=== PATIENT | female | born 1995 ===

== ENCOUNTER 2022-11-14 09:46 | Outpatient (OUT) | payer BC, SELFPAY ==
[2022-11-14 10:12] LABS: Basophils Absolute Auto 0.1 10^3/uL (0.0-0.1); Basophils Percent Auto 1.1 % (0.2-2.0); Eosinophils Absolute Auto 0.4 10^3/uL (0.0-0.7); Eosinophils Percent Auto 6.3 % (0.9-7.0); Hematocrit 40.3 % (36.0-48.0); Immature Granulocytes Abs Auto 0.01 10^3/uL (0.00-0.03); Immature Granulocytes Pct Auto 0.2 % (0.0-0.5); Lymphocytes Absolute Auto 1.5 10^3/uL (1.2-3.8); Lymphocytes Percent Auto 27.3 % (20.5-60.0); Mean Corpuscular HGB Conc 32.3 g/dL (29.9-35.2); Mean Corpuscular Hemoglobin 31.6 pg (26.7-34.0); Mean Corpuscular Volume 98.1 fL (81.0-99.0); Mean Platelet Volume 9.3 fL (9.5-13.5); Monocytes Absolute Auto 0.5 10^3/uL (0.3-0.8); Monocytes Percent Auto 8.8 % (1.7-12.0); Neutrophils Absolute Auto 3.1 10^3/uL (1.4-6.5); Neutrophils Percent Auto 56.3 % (43.0-75.0); Platelet Count 286 10^3/uL (150-450); Red Blood Count 4.11 10^6/uL (4.20-5.40); Red Cell Distribution Width 12.8 % (11.0-15.0); White Blood Count 5.6 10^3/uL (4.0-11.0)
[2022-11-14 10:44] LABS: Estimated Average Glucose 103 mg/dL; Glycohemoglobin A1C 5.2 % (4.5-6.2)
[2022-11-14 11:17] LABS: Alanine Aminotransferase 21 U/L (14-59); Albumin Globulin Ratio 0.9; Albumin Level 3.8 g/dL (3.4-5.0); Alkaline Phosphatase 62 U/L (46-116); Aspartate Amino Transferase 13 U/L (15-37); BUN Creatinine Ratio 19.2; Bilirubin Total 0.3 mg/dL (0.2-1.0); Calcium 8.9 mg/dL (8.5-10.1); Chloride 104 mmol/L (98-107); Chol HDL Ratio 4.3; Cholesterol 176 mg/dL (<=200); Estimated GFR (African America >60 (>=60); Estimated GFR (Non-African Ame >60 (>=60); Glucose 87 mg/dL (74-106); HDL Cholesterol 41 mg/dL (40-60); LDL Cholesterol Calculated 125.8 mg/dL; Sodium 138 mmol/L (136-145); Thyroid Stimulating Hormone 1.924 uIU/mL (0.358-3.740); Total Protein 7.8 g/dL (6.4-8.2); Triglycerides 46 mg/dL (<=150); VLDL CHOLESTEROL 9.2 mg/dL
== END 2022-11-14 09:47 | disposition home or self-care (01) ==
LOC: LAB 09:46
DX: Z00.00 Encounter for general adult medical examination without abnormal findings (principal)
CPT/HCPCS: 36415; 80053; 80061; 83036; 84443; 85025

== ENCOUNTER 2023-11-30 10:41 | Outpatient (OUT) | payer BC, SELFPAY ==
[2023-11-30 12:06] LABS: Basophils Absolute Auto 0.1 10^3/uL (0.0-0.1); Eosinophils Absolute Auto 0.5 10^3/uL (0.0-0.7); Eosinophils Percent Auto 6.2 % (0.9-7.0); Hematocrit 42.5 % (36.0-48.0); Hemoglobin 13.5 g/dL (12.0-16.0); Immature Granulocytes Abs Auto 0.02 10^3/uL (0.00-0.03); Immature Granulocytes Pct Auto 0.3 % (0.0-0.5); Lymphocytes Absolute Auto 1.8 10^3/uL (1.2-3.8); Lymphocytes Percent Auto 24.4 % (20.5-60.0); Mean Corpuscular HGB Conc 31.8 g/dL (29.9-35.2); Mean Corpuscular Volume 97.7 fL (81.0-99.0); Mean Platelet Volume 8.9 fL (9.5-13.5); Monocytes Absolute Auto 0.6 10^3/uL (0.3-0.8); Monocytes Percent Auto 7.7 % (1.7-12.0); Neutrophils Absolute Auto 4.4 10^3/uL (1.4-6.5); Neutrophils Percent Auto 60.4 % (43.0-75.0); Platelet Count 366 10^3/uL (150-450); Red Blood Count 4.35 10^6/uL (4.20-5.40); Red Cell Distribution Width 14.1 % (11.0-15.0); White Blood Count 7.2 10^3/uL (4.0-11.0)
[2023-11-30 12:23] LABS: Estimated Average Glucose 100 mg/dL; Glycohemoglobin A1C 5.1 % (4.5-6.2)
[2023-11-30 13:24] LABS: Alanine Aminotransferase 31 U/L (14-59); Albumin Globulin Ratio 0.9; Albumin Level 3.6 g/dL (3.4-5.0); Alkaline Phosphatase 82 U/L (46-116); Anion Gap 12.5; Aspartate Amino Transferase 20 U/L (15-37); BUN Creatinine Ratio 12.8; Bilirubin Total 0.5 mg/dL (0.2-1.0); Calcium 9.2 mg/dL (8.5-10.1); Carbon Dioxide 26.6 mmol/L (21.0-32.0); Chloride 104 mmol/L (98-107); Chol HDL Ratio 4.5; Cholesterol 205 mg/dL (<=200); Estimated GFR (African America >60 (>=60 mL/min/1.73m^2); Estimated GFR (Non-African Ame >60 (>=60 mL/min/1.73m^2); Globulin 4.2 g/dL; Glucose 83 mg/dL (74-106); HDL Cholesterol 46 mg/dL (40-60); Potassium 4.1 mmol/L (3.5-5.1); Sodium 139 mmol/L (136-145); Thyroid Stimulating Hormone 3.104 uIU/mL (0.358-3.740); Total Protein 7.8 g/dL (6.4-8.2); Triglycerides 73 mg/dL (<=150); VLDL CHOLESTEROL 14.6 mg/dL
== END 2023-11-30 10:42 | disposition home or self-care (01) ==
LOC: LAB 10:41
PROVIDERS: PCP Internal Medicine; Visit Provider Nurse Practitioner Family
DX: Z00.00 Encounter for general adult medical examination without abnormal findings (principal); Z23 Encounter for immunization
CPT/HCPCS: 36415; 80053; 80061; 83036; 84443; 85025; 90674